=== PATIENT | female | born 1955 | race Caucasian/White ===

== ENCOUNTER 2019-09-05 06:28 | Day surgery (SDC) | payer OTHER ==
[2019-09-05] VITALS (9 sets, daily range): BP systolic 81–120; BP diastolic 39–74
[2019-09-05] MEDS ORDERED: OMEP-50 PO (07:03)
[2019-09-05] MEDS ORDERED: NADO40TA PO (07:03)
[2019-09-05] MEDS ORDERED: METF-438 PO (07:03)
[2019-09-05] MEDS ORDERED: PROC10TA10 PO (07:03)
[2019-09-05] MEDS ORDERED: SEMA0.25 (07:03)
[2019-09-05] MEDS ORDERED: METO5TAB98 PO (07:03)
[2019-09-05] MEDS ORDERED: SPIR50TA5 PO (07:03)
[2019-09-05] MEDS ORDERED: FURO20TA4 PO (07:03)
[2019-09-05 07:14] LABS: BASOPHILS % (AUTO) 0.3 % (0-1); EOSINOPHILS # (AUTO) 0.1 X10'3 (0-0.9); EOSINOPHILS % (AUTO) 2.4 % (0-6); HEMATOCRIT 38.4 % (35.0-45.0); HEMOGLOBIN 12.9 g/dl (12.0-16.0); LYMPHOCYTES # (AUTO) 0.7 X10'3 (1.1-4.8); MEAN CORPUSCULAR HEMOGLOBIN 30.7 PG (27.0-31.0); MEAN CORPUSCULAR HGB CONC 33.6 g/dL (33.0-36.5); MEAN CORPUSCULAR VOLUME 91.6 FL (78-98); MEAN PLATELET VOLUME 7.8 FL (7.4-10.4); MONOCYTES # (AUTO) 0.5 X10'3 (0-0.9); MONOCYTES % (AUTO) 9.9 % (2-12); NEUTROPHILS # (AUTO) 3.3 X10'3 (1.8-7.7); NEUTROPHILS % (AUTO) 71.4 % (42-75); PLATELET COUNT 88 X10'3 (140-440); RED BLOOD COUNT 4.19 X10'6 (4.20-5.60); RED CELL DISTRIBUTION WIDTH 13.9 % (11.5-14.5); WHITE BLOOD COUNT 4.6 X10'3 (4.5-11.0)
[2019-09-05] MEDS ORDERED: HYDROcodone/acetaminophen 5mg/325mg tablet PO PRN (09:05)
== END 2019-09-05 11:00 | disposition home or self-care (01) ==
LOC: SSTAY O 06:28
PROVIDERS: ATTEND Radiology Diagnostic Radiology
DX: K74.60 Unspecified cirrhosis of liver (principal); K73.8 Other chronic hepatitis, not elsewhere classified; K76.0 Fatty (change of) liver, not elsewhere classified; E11.9 Type 2 diabetes mellitus without complications; Z11.59 Encounter for screening for other viral diseases; Z79.84 Long term (current) use of oral hypoglycemic drugs; Z79.899 Other long term (current) drug therapy
CPT/HCPCS: 36415; 47000; 76942; 85025; 85610; U0003

== ENCOUNTER 2021-12-31 15:59 | Inpatient (IN) | payer MEDICARE, MEDICAID ==
[~2021-12-31] VITALS: Ht 160 cm; Wt 77.0 kg
[~2021-12-31 15:59] MED LIST: FURO20TA4 PO; METF-438 PO; METO5TAB98 PO; NADO40TA4 PO; OMEP20CA16 PO; PROC10TA10 PO; SEMA0.25; SPIR50TA5 PO
[2021-12-31] MEDS ORDERED: normal saline 1000ML IV soln IVB ONE ×2 (16:15→18:20)
[2021-12-31] MEDS ORDERED: ondansetron/PF 4mg/2ml inj IV ONE (16:15)
[2021-12-31] MEDS ORDERED: morphine 4 MG/ML inj SYRINge IV PRN (16:15)
[2021-12-31 16:35] LABS: BASOPHILS # (AUTO) 0.1 X10'3 (0-0.2); BASOPHILS % (AUTO) 0.8 % (0-1); EOSINOPHILS % (AUTO) 0 % (0-6); HEMATOCRIT 34.9 % (35.0-45.0); HEMOGLOBIN 11.9 g/dl (12.0-16.0); LYMPHOCYTES # (AUTO) 0.5 X10'3 (1.1-4.8); LYMPHOCYTES % (AUTO) 4.1 % (21-51); MEAN CORPUSCULAR HEMOGLOBIN 30.4 PG (27.0-31.0); MEAN CORPUSCULAR HGB CONC 34.1 g/dL (33.0-36.5); MEAN CORPUSCULAR VOLUME 89.1 FL (78-98); MEAN PLATELET VOLUME 8.7 FL (7.4-10.4); MONOCYTES # (AUTO) 0.4 X10'3 (0-0.9); MONOCYTES % (AUTO) 3.2 % (2-12); NEUTROPHILS # (AUTO) 11.2 X10'3 (1.8-7.7); NEUTROPHILS % (AUTO) 91.9 % (42-75); PLATELET COUNT 156 X10'3 (140-440); RED BLOOD COUNT 3.92 X10'6 (4.20-5.60); RED CELL DISTRIBUTION WIDTH 12.6 % (11.5-14.5); WHITE BLOOD COUNT 12.2 X10'3 (4.5-11.0)
[2021-12-31] MEDS ORDERED: famotidine/PF 10 mg/ml inj IV ONE (16:40)
[2021-12-31] MEDS ORDERED: LORazepam 2 mg/ml vial IV ONE (16:40)
[2021-12-31] MEDS ORDERED: proCHLORperazine 10 MG/2 ml inj IV ONE (16:40)
[2021-12-31] MEDS ORDERED: ketorolac trometh. 30mg/ml inj. IV ONE (16:40)
[2021-12-31] MEDS ORDERED: CefTRIAXone 2gm/D5W 50ml BAG 50 ML IV ONE (16:40)
[2021-12-31 16:41] LABS: ALANINE AMINOTRANSFERASE 25 U/L (12-78); ALBUMIN 4.2 G/DL (3.4-5.0); ALBUMIN/GLOBULIN RATIO 1.1 (1.1-1.5); ALKALINE PHOSPHATASE 83 IU/L (46-116); ANION GAP 21 (8-16); ASPARTATE AMINO TRANSFERASE 28 U/L (10-37); BILIRUBIN,TOTAL 1.3 MG/DL (0.1-1.0); BLOOD UREA NITROGEN 62 MG/DL (7-18); BUN/CREATININE RATIO 28.8 (6.6-38.0); CHLORIDE 95 MMOL/L (99-107); CREATININE 2.15 MG/DL (0.40-0.90); GLUCOSE 323 MG/DL (70-104); LIPASE 476 U/L (73-393); POTASSIUM 5.1 MMOL/L (3.5-5.1); SODIUM 133 MMOL/L (135-145); TOTAL CARBON DIOXIDE 17.3 MMOL/L (24-32); TOTAL PROTEIN 7.9 G/DL (6.4-8.2); eGFR 23 ML/MIN
[2021-12-31 16:42] LABS: ETHANOL < 0.010 GM/DL (0.0-0.010)
[2021-12-31 17:23] LABS: GASTRIC OCCULT BLOOD POSITIVE (Neg)
--- NOTE | 2021-12-31 17:38 | NUR ---
Pt's spouse, Colby Hickman, called to check on pt. His phone number is: [phone].
[2021-12-31] MEDS ORDERED: diphenhydrAMINE 50 mg/ml inj IV PRN (20:25)
[2021-12-31] MEDS: normal saline 1000ml 1,000 ML IV SCH ×2 (20:25→21:26)
[2021-12-31] MEDS ORDERED: magnesium 4gm in 100ml NS 100 ML IV PRN (20:25)
[2021-12-31] MEDS ORDERED: magnesium Cl slow-release 64mg tablet PO PRN (20:25)
[2021-12-31] MEDS ORDERED: mag hydrox/Alum hydrox/simeth 30ml oral suspension PO PRN (20:25)
[2021-12-31] MEDS ORDERED: bisacodyl 10mg suppository rectal RC PRN (20:25)
[2021-12-31] MEDS ORDERED: HYDROmorphone inj. 0.5 MG/0.5 ML DISP.SYRIN IV PRN (20:25)
[2021-12-31] MEDS ORDERED: ondansetron 4mg rapidly disintigrating tab PO PRN (20:25)
[2021-12-31] MEDS ORDERED: potassium Cl 40MEQ/1/2NS 520ml 520 ML IV PRN (20:25)
[2021-12-31] MEDS ORDERED: diphenhydrAMINE 25mg capsule PO PRN (20:25)
[2021-12-31] MEDS ORDERED: acetaminophen 325mg tablet PO PRN ×2 (20:25)
[2021-12-31] MEDS ORDERED: acetaminophen 650mg rectal suppository RC PRN (20:25)
[2021-12-31] MEDS ORDERED: magnesium hydroxide 30ml (MOM) UD suspension PO PRN (20:25)
[2021-12-31] MEDS ORDERED: potassium Cl 20 mEq SR tablet PO PRN ×2 (20:25)
[2021-12-31] MEDS ORDERED: insulin Lispro (HumaLOG) vial - multi-dose SQ SCH (20:30)
[2021-12-31] MEDS ORDERED: MESSAGE TO PHARMACY PO ONE (20:30)
[2021-12-31] MEDS ORDERED: dextrose 50%-water 50ml dispensing syringe IV PRN ×2 (20:30)
[2021-12-31] MEDS ORDERED: glucagon, human recombinant 1mg kit SUBCUT PRN (20:30)
[2021-12-31] MEDS ORDERED: DEXTROSE 15 GM of carb/4 tabs (each vial/BOTTLE has 4 tablets) PO PRN ×2 (20:30)
[2021-12-31] MEDS ORDERED: temazepam 15mg capsule PO PRN (21:00)
[2021-12-31 21:13] LABS: APTT 31 SECONDS (22-32)
[2021-12-31 21:24] LABS: CREATINE KINASE 91 U/L (26-192); HEMOGLOBIN A1C 5.8 % (4.5-6.2); LIPASE 380 U/L (73-393); PHOSPHORUS 3.6 MG/DL (2.3-4.5)
[2021-12-31 21:25] LABS: ABG BASE EXCESS -5.2 mmol/L (-2.0-2.0); ABG HCO3 19.2 mmol/L (22.0-26.0); ABG OXYGEN SATURATION 93.6 % (94-97); ABG PCO2 (T) 33.3 mmHg (32.0-45.0); ABG PO2 (T) 76.4 mmHg (75.0-100.0); ALLEN'S TEST POSITIVE; FCOHb 0.3 % (0.0-3.9); FMetHb 0.3 % (0.0-1.5); TOTAL HEMOGLOBIN 10.2 G/dl (12.0-16.0)
[2022-01-01] VITALS (12 sets, daily range): BP systolic 88–112; BP diastolic 43–61
--- NOTE | 2022-01-01 00:15 | NUR ---
Spoke with Dr Aviles at patient's bedside regarding patient's worsening hypotension. 500mL bolus order recieved from MD. Patient denies symptoms of hypotension at this time.
--- NOTE | 2022-01-01 00:30 | NUR ---
Assumed care of patient.
[2022-01-01] MEDS ORDERED: normal saline 500ml IV soln 500 ML IV ONE (01:15)
[2022-01-01] MEDS ORDERED: LIDOcaine 2% 10ml TOPICAL JELLY (Urojet) TP ONE (01:55)
[2022-01-01 03:02] LABS: CLARITY,URINE SLIGHTLY CLOUDY (Clear); COLOR,URINE YELLOW (Yellow); GLUCOSE, URINE NEGATIVE (Neg); KETONES,URINE TRACE mg/dl (Neg); LEUKOCYTE ESTERASE ,URINE NEGATIVE (Neg); NITRITES, URINE POSITIVE (Neg); OCCULT BLOOD,URINE NEGATIVE (Neg); PH,URINE 5.5 (4.8-8.0); PROTEIN,URINE NEGATIVE (Neg); UROBILINOGEN,URINE 0.2 E.U/dL (0.2-1.0)
[2022-01-01 03:14] LABS: URINE AMPHETAMINE SCREEN NEGATIVE (Neg); URINE BARBITUATE SCREEN NEGATIVE (Neg); URINE BENZODIAZEPINES SCREEN NEGATIVE (Neg); URINE CANNABINOID SCREEN NEGATIVE (Neg); URINE COCAINE SCREEN NEGATIVE (Neg); URINE METHADONE SCREEN NEGATIVE (Neg); URINE OPIATE SCREEN POSITIVE (Neg); URINE PHENCYCLIDINE SCREEN NEGATIVE (Neg)
[2022-01-01 03:15] LABS: UA COLLECTION TYPE FOLEY CATH
[2022-01-01 03:16] LABS: SQUAMOUS EPITHELIAL CELL,UR MODERATE /LPF (FEW)
[2022-01-01 03:17] LABS: BACTERIA,URINE 4+ /HPF (Neg); RBC,URINE 0-2 /HPF (0-2); TRANSITIONAL EPI CELLS,URINE FEW /HPF
[2022-01-01 03:18] LABS: WBC,URINE 0-4 /HPF (0-4)
--- NOTE | 2022-01-01 03:40 | NUR ---
Call to Dr. Aviles regarding patient inability to maintain adequate blood pressure. Recommended consult with Heading Matcher And Assembler, did not agree.
[2022-01-01] MEDS ORDERED: DOPamine 400mg/D5W 250ml 250 ML IV SCH (03:45)
[2022-01-01] MEDS: DOPamine 400mg/D5W 250ml 250 ML IV SCH ×2 (04:43→20:17)
[2022-01-01] MEDS: normal saline 1000ml 1,000 ML IV SCH ×4 (04:55→20:35)
--- NOTE | 2022-01-01 06:56 | NUR ---
Report given to NICKOLAS Bernal in CICU.
[2022-01-01] MEDS: pantoprazole 40MG/NS 100ML BAG 100 ML IV SCH ×2 (08:00→20:31)
[2022-01-01] MEDS: K and/or MAG REPLACEMENT MC SCH ×2 (08:00→20:00)
[2022-01-01] MEDS: docusate sod 100mg capsule PO SCH ×2 (08:00→20:00)
--- NOTE | 2022-01-01 08:30 | NUR ---
Patient arrived to floor and placed on bedside telemetry. Stable vital signs on Dopamine. Patient oriented to room with all questions answered and call light in reach.
[2022-01-01 09:59] LABS: BASOPHILS % (AUTO) 0.3 % (0-1); EOSINOPHILS % (AUTO) 0.2 % (0-6); HEMATOCRIT 27.3 % (35.0-45.0); HEMOGLOBIN 9.5 g/dl (12.0-16.0); LYMPHOCYTES # (AUTO) 0.4 X10'3 (1.1-4.8); LYMPHOCYTES % (AUTO) 4.3 % (21-51); MEAN CORPUSCULAR HEMOGLOBIN 31.4 PG (27.0-31.0); MEAN CORPUSCULAR HGB CONC 34.8 g/dL (33.0-36.5); MEAN CORPUSCULAR VOLUME 90.4 FL (78-98); MEAN PLATELET VOLUME 7.9 FL (7.4-10.4); MONOCYTES # (AUTO) 0.5 X10'3 (0-0.9); MONOCYTES % (AUTO) 4.8 % (2-12); NEUTROPHILS # (AUTO) 8.9 X10'3 (1.8-7.7); NEUTROPHILS % (AUTO) 90.4 % (42-75); PLATELET COUNT 80 X10'3 (140-440); RED BLOOD COUNT 3.02 X10'6 (4.20-5.60); RED CELL DISTRIBUTION WIDTH 12.9 % (11.5-14.5); WHITE BLOOD COUNT 9.9 X10'3 (4.5-11.0)
[2022-01-01 10:09] LABS: ALANINE AMINOTRANSFERASE 17 U/L (12-78); ALKALINE PHOSPHATASE 62 IU/L (46-116); ANION GAP 10 (8-16); ASPARTATE AMINO TRANSFERASE 28 U/L (10-37); BILIRUBIN,TOTAL 0.5 MG/DL (0.1-1.0); BLOOD UREA NITROGEN 55 MG/DL (7-18); BUN/CREATININE RATIO 29.6 (6.6-38.0); CALCIUM 8.1 MG/DL (8.5-10.1); CHLORIDE 111 MMOL/L (99-107); CREATININE 1.86 MG/DL (0.40-0.90); GLUCOSE 123 MG/DL (70-104); MAGNESIUM 2.1 MG/DL (1.5-2.4); POTASSIUM 4.6 MMOL/L (3.5-5.1); SODIUM 145 MMOL/L (135-145); TOTAL CARBON DIOXIDE 23.9 MMOL/L (24-32); eGFR 27 ML/MIN
[2022-01-01] MEDS: morphine 2 MG/ML inj. syringe IV PRN ×2 (10:24→16:21)
[2022-01-01 10:33] LABS: LIPASE 2579 U/L (73-393)
[2022-01-01] MEDS: piperacillin/tazo 4.5gm/100ml 100 ML IV SCH (15:30)
--- NOTE | 2022-01-01 16:42 | NUR ---
Patient in room CICU 2013. I have received report from ICU nurse and had the opportunity to ask questions and assume patient care. Addendum: 01/01/22 at 1642 by Linda Damian RN Patient in room CICU 2013. I have received report from ICU nurse rom and had the opportunity to ask questions and assume patient care.
--- NOTE | 2022-01-01 17:10 | NUR ---
Patient transferred to Telemetry with all belongings, chart, and hospital medications. Report given to Bran with all questions answered.
[2022-01-01] MEDS ORDERED: SITA25TA3 PO (17:13)
[2022-01-01] MEDS ORDERED: URSO300C2 PO (17:14)
[2022-01-01] MEDS ORDERED: DULA1.5P SQ (17:15)
[2022-01-01] MEDS ORDERED: FURO40TA4 PO (17:16)
[2022-01-01] MEDS ORDERED: ONDA4TAB12 PO (17:17)
[2022-01-01] MEDS ORDERED: LISI10TA27 PO (17:18)
--- NOTE | 2022-01-01 17:30 | NUR ---
PT CAME UP TO THE FLOOR AND WAS DROPPED OFF BY THE ICU NURSE. VITALS WERE TAKEN AND PT WAS TUCKED INTO BED AND GOT HER WATER. WILL LET NIGHT NURSE KNOW SHE IS STABLE.
--- NOTE | 2022-01-01 18:53 | NUR ---
Problems reprioritized. Patient report given, questions answered & plan of care reviewed with TIM OLMOS.
[2022-01-01] MEDS ORDERED: traMADol 50MG tablet PO PRN (20:20)
[2022-01-01] MEDS: HYDROcodone/acetaminophen 5mg/325mg tablet PO PRN (20:31)
[2022-01-01] MEDS: CefTRIAXone/D5W-Rocephin 1gm 50 ML IV SCH (20:35)
[2022-01-02] MEDS: piperacillin/tazo 4.5gm/100ml 100 ML IV SCH ×3 (00:59→16:04)
[2022-01-02 05:54] VITALS: BP 114/69
[2022-01-02 05:54] LABS: BASOPHILS % (AUTO) 0.3 % (0-1); EOSINOPHILS # (AUTO) 0.1 X10'3 (0-0.9); EOSINOPHILS % (AUTO) 1.8 % (0-6); HEMATOCRIT 25.7 % (35.0-45.0); HEMOGLOBIN 8.8 g/dl (12.0-16.0); LYMPHOCYTES # (AUTO) 0.6 X10'3 (1.1-4.8); LYMPHOCYTES % (AUTO) 12.1 % (21-51); MEAN CORPUSCULAR HEMOGLOBIN 31.1 PG (27.0-31.0); MEAN CORPUSCULAR HGB CONC 34.3 g/dL (33.0-36.5); MEAN CORPUSCULAR VOLUME 90.8 FL (78-98); MEAN PLATELET VOLUME 7.9 FL (7.4-10.4); MONOCYTES # (AUTO) 0.4 X10'3 (0-0.9); MONOCYTES % (AUTO) 7.7 % (2-12); NEUTROPHILS # (AUTO) 3.6 X10'3 (1.8-7.7); NEUTROPHILS % (AUTO) 78.1 % (42-75); PLATELET COUNT 70 X10'3 (140-440); RED BLOOD COUNT 2.83 X10'6 (4.20-5.60); RED CELL DISTRIBUTION WIDTH 13.1 % (11.5-14.5); WHITE BLOOD COUNT 4.6 X10'3 (4.5-11.0)
[2022-01-02 06:00] VITALS: BP 108/59
[2022-01-02 06:12] LABS: ALANINE AMINOTRANSFERASE 19 U/L (12-78); ALBUMIN 2.5 G/DL (3.4-5.0); ALBUMIN/GLOBULIN RATIO 0.9 (1.1-1.5); ALKALINE PHOSPHATASE 58 IU/L (46-116); ANION GAP 8 (8-16); ASPARTATE AMINO TRANSFERASE 29 U/L (10-37); BILIRUBIN,TOTAL 0.5 MG/DL (0.1-1.0); BLOOD UREA NITROGEN 32 MG/DL (7-18); BUN/CREATININE RATIO 23.2 (6.6-38.0); CALCIUM 7.9 MG/DL (8.5-10.1); CHLORIDE 110 MMOL/L (99-107); CREATININE 1.38 MG/DL (0.40-0.90); GLUCOSE 109 MG/DL (70-104); POTASSIUM 4.6 MMOL/L (3.5-5.1); SODIUM 142 MMOL/L (135-145); TOTAL CARBON DIOXIDE 24.3 MMOL/L (24-32); TOTAL PROTEIN 5.4 G/DL (6.4-8.2); eGFR 38 ML/MIN
[2022-01-02] MEDS ORDERED: INDOCYANINE GREEN 25 MG/10 ML VIAL IV ONE (06:15)
--- NOTE | 2022-01-02 06:39 | NUR ---
Patient in room PCU 3027. I have received report from NICKOLAS Arvizu and had the opportunity to ask questions and assume patient care.
[2022-01-02] MEDS: normal saline 1000ml 1,000 ML IV SCH (07:35)
[2022-01-02] MEDS: K and/or MAG REPLACEMENT MC SCH ×2 (08:00→19:23)
[2022-01-02] MEDS: docusate sod 100mg capsule PO SCH ×2 (08:00→20:32)
[2022-01-02 08:08] LABS: LIPASE 3348 U/L (73-393)
[2022-01-02] MEDS ORDERED: INDOCYANINE GREEN 25 MG/10 ML VIAL IV STA (09:11)
[2022-01-02 11:00] VITALS: BP 115/62
[2022-01-02] MEDS: HYDROcodone/acetaminophen 10/325mg tab PO PRN ×2 (11:02→20:39)
[2022-01-02] MEDS ORDERED: BUPIVAcaine/PF 2.5 mg/ml (0.25%) 30ml vial ONE (12:17)
[2022-01-02] MEDS ORDERED: LIDOcaine 1% 30ml preserv. free vial ONE (12:17)
[2022-01-02 15:00] VITALS: BP 105/59
[2022-01-02 18:00] VITALS: BP 135/73
--- NOTE | 2022-01-02 18:34 | NUR ---
Problems reprioritized. Patient report given, questions answered & plan of care reviewed with NICKOLAS Dodson.
[2022-01-02] MEDS: Ursodiol 300mg capsule PO SCH (20:31)
[2022-01-02] MEDS: CefTRIAXone/D5W-Rocephin 1gm 50 ML IV SCH (20:31)
[2022-01-02] MEDS: furosemide 40mg tablet PO SCH (20:32)
[2022-01-02] MEDS: spironolactone 50 MG tablet PO SCH (20:32)
[2022-01-03] MEDS: piperacillin/tazo 4.5gm/100ml 100 ML IV SCH ×3 (00:41→15:52)
[2022-01-03 02:00] VITALS: BP 108/63
[2022-01-03 06:00] VITALS: BP 109/65
[2022-01-03 06:50] LABS: BASOPHILS % (AUTO) 0.4 % (0-1); EOSINOPHILS # (AUTO) 0.1 X10'3 (0-0.9); EOSINOPHILS % (AUTO) 3.5 % (0-6); HEMATOCRIT 29.4 % (35.0-45.0); HEMOGLOBIN 10.3 g/dl (12.0-16.0); LYMPHOCYTES # (AUTO) 0.7 X10'3 (1.1-4.8); LYMPHOCYTES % (AUTO) 17.6 % (21-51); MEAN CORPUSCULAR HEMOGLOBIN 31.4 PG (27.0-31.0); MEAN CORPUSCULAR HGB CONC 35.1 g/dL (33.0-36.5); MEAN CORPUSCULAR VOLUME 89.3 FL (78-98); MONOCYTES # (AUTO) 0.3 X10'3 (0-0.9); MONOCYTES % (AUTO) 8.2 % (2-12); NEUTROPHILS # (AUTO) 2.8 X10'3 (1.8-7.7); NEUTROPHILS % (AUTO) 70.3 % (42-75); PLATELET COUNT 86 X10'3 (140-440); RED BLOOD COUNT 3.29 X10'6 (4.20-5.60); RED CELL DISTRIBUTION WIDTH 12.6 % (11.5-14.5)
--- NOTE | 2022-01-03 06:52 | NUR ---
Patient in room PCU 3027. I have received report from NICKOLAS Dodson and had the opportunity to ask questions and assume patient care.
[2022-01-03 07:04] LABS: ALANINE AMINOTRANSFERASE 20 U/L (12-78); ALBUMIN 3.1 G/DL (3.4-5.0); ALBUMIN/GLOBULIN RATIO 0.9 (1.1-1.5); ALKALINE PHOSPHATASE 77 IU/L (46-116); ANION GAP 6 (8-16); ASPARTATE AMINO TRANSFERASE 45 U/L (10-37); BILIRUBIN,TOTAL 0.8 MG/DL (0.1-1.0); BLOOD UREA NITROGEN 20 MG/DL (7-18); BUN/CREATININE RATIO 14.5 (6.6-38.0); CALCIUM 8.7 MG/DL (8.5-10.1); CHLORIDE 103 MMOL/L (99-107); CREATININE 1.38 MG/DL (0.40-0.90); GLUCOSE 95 MG/DL (70-104); LIPASE 1164 U/L (73-393); SODIUM 137 MMOL/L (135-145); TOTAL CARBON DIOXIDE 28.5 MMOL/L (24-32); TOTAL PROTEIN 6.5 G/DL (6.4-8.2); eGFR 38 ML/MIN
[2022-01-03 07:09] LABS: POTASSIUM 4.1 MMOL/L (3.5-5.1)
[2022-01-03] MEDS: pantoprazole 40MG/NS 100ML BAG 100 ML IV SCH (07:32)
[2022-01-03] MEDS: spironolactone 50 MG tablet PO SCH ×3 (07:38→21:31)
[2022-01-03] MEDS: lisinopril 10 MG tablet PO SCH (07:38)
[2022-01-03] MEDS: docusate sod 100mg capsule PO SCH ×2 (07:39→21:31)
[2022-01-03] MEDS: K and/or MAG REPLACEMENT MC SCH ×2 (07:39→20:00)
[2022-01-03] MEDS: furosemide 40mg tablet PO SCH ×2 (07:39→21:32)
[2022-01-03] MEDS: Ursodiol 300mg capsule PO SCH ×2 (07:51→21:31)
[2022-01-03 11:00] VITALS: BP 119/67
[2022-01-03] MEDS: normal saline 1000ml 1,000 ML IV SCH ×2 (11:34→14:07)
[2022-01-03 11:50] VITALS: BP 119/67
--- NOTE | 2022-01-03 19:05 | NUR ---
Problems reprioritized. Patient report given, questions answered & plan of care reviewed with NICKOLAS Dodson.
[2022-01-03] MEDS: CefTRIAXone/D5W-Rocephin 1gm 50 ML IV SCH (21:31)
[2022-01-04] MEDS: piperacillin/tazo 4.5gm/100ml 100 ML IV SCH ×3 (00:21→16:09)
[2022-01-04] MEDS: normal saline 1000ml 1,000 ML IV SCH (04:14)
[2022-01-04] MEDS: ondansetron/PF 4mg/2ml inj IV PRN (04:51)
[2022-01-04 06:00] VITALS: BP 95/63
[2022-01-04 06:23] LABS: BASOPHILS % (AUTO) 0.4 % (0-1); EOSINOPHILS # (AUTO) 0.1 X10'3 (0-0.9); EOSINOPHILS % (AUTO) 2.5 % (0-6); HEMATOCRIT 31.9 % (35.0-45.0); HEMOGLOBIN 11.2 g/dl (12.0-16.0); LYMPHOCYTES # (AUTO) 0.7 X10'3 (1.1-4.8); LYMPHOCYTES % (AUTO) 14.5 % (21-51); MEAN CORPUSCULAR HEMOGLOBIN 31.3 PG (27.0-31.0); MEAN CORPUSCULAR HGB CONC 35.2 g/dL (33.0-36.5); MEAN CORPUSCULAR VOLUME 88.8 FL (78-98); MEAN PLATELET VOLUME 8.1 FL (7.4-10.4); MONOCYTES # (AUTO) 0.5 X10'3 (0-0.9); MONOCYTES % (AUTO) 9.3 % (2-12); NEUTROPHILS # (AUTO) 3.6 X10'3 (1.8-7.7); NEUTROPHILS % (AUTO) 73.3 % (42-75); PLATELET COUNT 104 X10'3 (140-440); RED BLOOD COUNT 3.59 X10'6 (4.20-5.60); RED CELL DISTRIBUTION WIDTH 12.8 % (11.5-14.5)
--- NOTE | 2022-01-04 06:40 | NUR ---
Patient in room PCU 3027. I have received report from NICKOLAS Dodson and had the opportunity to ask questions and assume patient care.
[2022-01-04 06:45] LABS: ALANINE AMINOTRANSFERASE 23 U/L (12-78); ALBUMIN 3.5 G/DL (3.4-5.0); ALBUMIN/GLOBULIN RATIO 0.9 (1.1-1.5); ALKALINE PHOSPHATASE 84 IU/L (46-116); ANION GAP 10 (8-16); ASPARTATE AMINO TRANSFERASE 36 U/L (10-37); BILIRUBIN,TOTAL 0.9 MG/DL (0.1-1.0); BLOOD UREA NITROGEN 18 MG/DL (7-18); BUN/CREATININE RATIO 11.4 (6.6-38.0); CALCIUM 9.1 MG/DL (8.5-10.1); CHLORIDE 99 MMOL/L (99-107); CREATININE 1.58 MG/DL (0.40-0.90); GLUCOSE 89 MG/DL (70-104); MAGNESIUM 1.6 MG/DL (1.5-2.4); POTASSIUM 3.4 MMOL/L (3.5-5.1); SODIUM 139 MMOL/L (135-145); TOTAL CARBON DIOXIDE 30.3 MMOL/L (24-32); TOTAL PROTEIN 7.4 G/DL (6.4-8.2); eGFR 33 ML/MIN
[2022-01-04] MEDS: Ursodiol 300mg capsule PO SCH ×2 (07:11→20:00)
[2022-01-04] MEDS: pantoprazole 40MG/NS 100ML BAG 100 ML IV SCH (07:11)
[2022-01-04] MEDS: docusate sod 100mg capsule PO SCH ×2 (07:12→20:00)
[2022-01-04] MEDS: lisinopril 10 MG tablet PO SCH (07:12)
[2022-01-04] MEDS: furosemide 40mg tablet PO SCH ×2 (07:13→20:00)
[2022-01-04] MEDS: spironolactone 50 MG tablet PO SCH ×3 (07:13→21:00)
--- NOTE | 2022-01-04 09:54 | NUR ---
Initial: Pt admit DX pancreatitis related to cholelithiasis, KATIE, normocytic anemia, and hx cirrhosis w/ end stage liver disease per EMR. Pt Initially w/ nausea/dry heaving and abdominal pain though feeling better last night per MD note. Lipase 1164 yesterday down from prior 3348 on NPO vs clear liquids diet past 5 days. Pt PO 75-100% 3 documented meal intakes this admit not meeting needs w/ restrictive diet. RD d/w RN regarding diet advancement if MD agreeable. IF pt to remain on restrictive diet may benefit from post-pyloric supplemental EN to assist meeting needs. LBM 01/01 pt refusing colace this AM per EMR. Will monitor for further nutrition intervention needs this admit. Rec: 1. advance diet as medically indicated to regular 2. IF to remain on restrictive clears vs NPO; consider supplemental post-pyloric EN to meet nutrition needs 3. routine bowel care 4. scaled wt this admit; subsequent weekly wts Addendum: 01/04/22 at [address] Amended: Links added.
[2022-01-04] MEDS: HYDROcodone/acetaminophen 10/325mg tab PO PRN ×2 (10:42→17:13)
[2022-01-04] MEDS ORDERED: potassium Cl 20 mEq SR tablet PO PRN (10:50)
[2022-01-04] MEDS ORDERED: potassium Cl 40MEQ/1/2NS 520ml 520 ML IV PRN ×2 (10:50)
[2022-01-04 11:00] VITALS: BP 91/64
[2022-01-04] MEDS ORDERED: HYDR-3965 PO (12:09)
[2022-01-04] MEDS ORDERED: AMOX-580 PO (12:09)
[2022-01-04] MEDS: potassium Cl 20 mEq SR tablet PO PRN ×2 (13:29→17:42)
[2022-01-04 17:00] VITALS: BP 119/64
--- NOTE | 2022-01-04 18:49 | NUR ---
Problems reprioritized. Patient report given, questions answered & plan of care reviewed with NICKOLAS Dodson.
[2022-01-04] MEDS: K and/or MAG REPLACEMENT MC SCH (20:00)
[2022-01-05] MEDS: HYDROcodone/acetaminophen 10/325mg tab PO PRN (03:15)
[2022-01-05 06:00] VITALS: BP 99/58
[2022-01-05 06:43] LABS: BASOPHILS % (AUTO) 0.5 % (0-1); EOSINOPHILS # (AUTO) 0.1 X10'3 (0-0.9); HEMATOCRIT 32.8 % (35.0-45.0); HEMOGLOBIN 11.6 g/dl (12.0-16.0); LYMPHOCYTES # (AUTO) 0.7 X10'3 (1.1-4.8); MEAN CORPUSCULAR HEMOGLOBIN 31.3 PG (27.0-31.0); MEAN CORPUSCULAR HGB CONC 35.3 g/dL (33.0-36.5); MEAN CORPUSCULAR VOLUME 88.7 FL (78-98); MEAN PLATELET VOLUME 8.2 FL (7.4-10.4); MONOCYTES # (AUTO) 0.5 X10'3 (0-0.9); MONOCYTES % (AUTO) 11.1 % (2-12); NEUTROPHILS # (AUTO) 3.1 X10'3 (1.8-7.7); NEUTROPHILS % (AUTO) 69.4 % (42-75); PLATELET COUNT 98 X10'3 (140-440); RED BLOOD COUNT 3.69 X10'6 (4.20-5.60); RED CELL DISTRIBUTION WIDTH 12.8 % (11.5-14.5); WHITE BLOOD COUNT 4.4 X10'3 (4.5-11.0)
[2022-01-05 06:52] LABS: ALANINE AMINOTRANSFERASE 18 U/L (12-78); ALBUMIN 3.5 G/DL (3.4-5.0); ALBUMIN/GLOBULIN RATIO 0.9 (1.1-1.5); ALKALINE PHOSPHATASE 89 IU/L (46-116); ANION GAP 8 (8-16); ASPARTATE AMINO TRANSFERASE 32 U/L (10-37); BILIRUBIN,TOTAL 0.8 MG/DL (0.1-1.0); BLOOD UREA NITROGEN 20 MG/DL (7-18); BUN/CREATININE RATIO 11.8 (6.6-38.0); CALCIUM 9.3 MG/DL (8.5-10.1); CHLORIDE 98 MMOL/L (99-107); GLUCOSE 94 MG/DL (70-104); POTASSIUM 3.8 MMOL/L (3.5-5.1); SODIUM 135 MMOL/L (135-145); TOTAL CARBON DIOXIDE 29.1 MMOL/L (24-32); TOTAL PROTEIN 7.3 G/DL (6.4-8.2); eGFR 30 ML/MIN
[2022-01-05] MEDS: Ursodiol 300mg capsule PO SCH ×2 (07:17→20:01)
[2022-01-05] MEDS: pantoprazole 40MG/NS 100ML BAG 100 ML IV SCH (07:17)
[2022-01-05] MEDS: furosemide 40mg tablet PO SCH ×2 (07:26→20:02)
[2022-01-05] MEDS: spironolactone 50 MG tablet PO SCH ×3 (07:26→20:01)
[2022-01-05] MEDS: lisinopril 10 MG tablet PO SCH (07:26)
[2022-01-05] MEDS: docusate sod 100mg capsule PO SCH ×2 (07:27→20:00)
[2022-01-05] MEDS: K and/or MAG REPLACEMENT MC SCH ×2 (08:00→20:00)
[2022-01-05 10:00] VITALS: BP 103/67
[2022-01-05] MEDS: piperacillin/tazo 4.5gm/100ml 100 ML IV SCH ×4 (10:02→23:48)
--- NOTE | 2022-01-05 14:15 | NUR ---
pt in shower will give med when done
[2022-01-05 15:00] VITALS: BP 111/68
[2022-01-05 18:00] VITALS: BP 112/66
[2022-01-05 20:00] VITALS: BP 117/79
[2022-01-05] MEDS: HYDROcodone/acetaminophen 5mg/325mg tablet PO PRN (20:02)
[2022-01-05 22:00] VITALS: BP 108/56
[2022-01-06 02:00] VITALS: BP_SYST 157; BP_SYST 97; BP_DIAS 55; BP_DIAS 95
[2022-01-06 06:00] VITALS: BP 93/62
--- NOTE | 2022-01-06 06:42 | NUR ---
Problems reprioritized. Patient report given, questions answered & plan of care reviewed with RAYSHAWN OLMOS.
[2022-01-06] MEDS: docusate sod 100mg capsule PO SCH ×2 (08:00→20:00)
[2022-01-06] MEDS: K and/or MAG REPLACEMENT MC SCH ×2 (08:00→20:00)
[2022-01-06] MEDS: Ursodiol 300mg capsule PO SCH ×2 (09:24→20:01)
[2022-01-06] MEDS: lisinopril 10 MG tablet PO SCH (09:25)
[2022-01-06] MEDS: spironolactone 50 MG tablet PO SCH ×3 (09:25→21:07)
[2022-01-06] MEDS: furosemide 40mg tablet PO SCH ×2 (09:25→20:01)
[2022-01-06] MEDS: piperacillin/tazo 4.5gm/100ml 100 ML IV SCH (09:34)
[2022-01-06] MEDS: pantoprazole 40MG/NS 100ML BAG 100 ML IV SCH (09:44)
[2022-01-06] MEDS: piperacillin/tazo 3.375gm/50ml 50 ML IV SCH (16:06)
[2022-01-06 16:15] VITALS: BP 117/40
[2022-01-06 18:00] VITALS: BP 114/65
--- NOTE | 2022-01-06 18:12 | NUR ---
Problems reprioritized. Patient report given, questions answered & plan of care reviewed with Mary Lou OLMOS.
--- NOTE | 2022-01-06 18:20 | NUR ---
Patient in room U 3027. I have received report from NICKOLAS Burrell and had the opportunity to ask questions and assume patient care. Patient sitting up in bed talking on phone, I will continue to monitor.
[2022-01-06 22:00] VITALS: BP 80/46
[2022-01-07] VITALS (23 sets, daily range): BP systolic 95–136; BP diastolic 49–70
[2022-01-07] MEDS: piperacillin/tazo 3.375gm/50ml 50 ML IV SCH ×3 (00:08→19:37)
[2022-01-07 05:55] LABS: BASOPHILS % (AUTO) 0.6 % (0-1); EOSINOPHILS # (AUTO) 0.2 X10'3 (0-0.9); EOSINOPHILS % (AUTO) 3.3 % (0-6); HEMATOCRIT 32.8 % (35.0-45.0); HEMOGLOBIN 11.3 g/dl (12.0-16.0); LYMPHOCYTES # (AUTO) 0.8 X10'3 (1.1-4.8); LYMPHOCYTES % (AUTO) 15.3 % (21-51); MEAN CORPUSCULAR HEMOGLOBIN 30.7 PG (27.0-31.0); MEAN CORPUSCULAR HGB CONC 34.5 g/dL (33.0-36.5); MEAN CORPUSCULAR VOLUME 89.2 FL (78-98); MONOCYTES # (AUTO) 0.6 X10'3 (0-0.9); NEUTROPHILS # (AUTO) 3.5 X10'3 (1.8-7.7); NEUTROPHILS % (AUTO) 68.8 % (42-75); PLATELET COUNT 109 X10'3 (140-440); RED BLOOD COUNT 3.67 X10'6 (4.20-5.60); RED CELL DISTRIBUTION WIDTH 12.8 % (11.5-14.5); WHITE BLOOD COUNT 5.1 X10'3 (4.5-11.0)
[2022-01-07 06:09] LABS: ALANINE AMINOTRANSFERASE 19 U/L (12-78); ALBUMIN 3.4 G/DL (3.4-5.0); ALBUMIN/GLOBULIN RATIO 0.9 (1.1-1.5); ALKALINE PHOSPHATASE 82 IU/L (46-116); ANION GAP 5 (8-16); ASPARTATE AMINO TRANSFERASE 30 U/L (10-37); BILIRUBIN,TOTAL 0.8 MG/DL (0.1-1.0); BLOOD UREA NITROGEN 22 MG/DL (7-18); BUN/CREATININE RATIO 9.1 (6.6-38.0); CALCIUM 9.1 MG/DL (8.5-10.1); CHLORIDE 98 MMOL/L (99-107); CREATININE 2.41 MG/DL (0.40-0.90); GLUCOSE 102 MG/DL (70-104); POTASSIUM 3.4 MMOL/L (3.5-5.1); SODIUM 137 MMOL/L (135-145); TOTAL CARBON DIOXIDE 33.8 MMOL/L (24-32); eGFR 20 ML/MIN
--- NOTE | 2022-01-07 06:20 | NUR ---
Problems reprioritized. Patient report given, questions answered & plan of care reviewed with NICKOLAS Geiger.
[2022-01-07] MEDS ORDERED: LIDOcaine 1% 30ml preserv. free vial ONE (07:05)
[2022-01-07] MEDS ORDERED: BUPIVAcaine 0.5% inj/PF 30 ML ONE (07:05)
[2022-01-07] MEDS: pantoprazole 40MG/NS 100ML BAG 100 ML IV SCH (07:12)
[2022-01-07] MEDS: Ursodiol 300mg capsule PO SCH ×2 (07:18→20:00)
[2022-01-07] MEDS: lisinopril 10 MG tablet PO SCH (07:20)
[2022-01-07] MEDS: furosemide 40mg tablet PO SCH (07:20)
[2022-01-07] MEDS: docusate sod 100mg capsule PO SCH ×2 (07:21→20:00)
[2022-01-07] MEDS: spironolactone 50 MG tablet PO SCH ×3 (07:21→21:00)
[2022-01-07] MEDS: K and/or MAG REPLACEMENT MC SCH ×2 (07:25→20:00)
[2022-01-07] MEDS: potassium Cl 20 mEq SR tablet PO PRN (07:25)
--- NOTE | 2022-01-07 08:14 | NUR ---
Reassessment; Pt has been advanced to Full liquid diet and has had mostly 100% of meals, not meeting est protein needs. While this full liquid diet technically does meet her est energy needs, it will be insufficient on micronutrients. Pt may be getting laparoscopic cholecystectomy this admit per EMR. Recommend advancing to Regular diet. LB 01/06, will continue to monitor. Rec: 1. advance diet as medically indicated to regular 2. IF to remain on restrictive clears vs NPO; consider supplemental post-pyloric EN to meet nutrition needs 3. routine bowel care 4. scaled wt this admit; subsequent weekly wts Addendum: 01/07/22 at [address] Amended: Links added.
[2022-01-07] MEDS ORDERED: INDOCYANINE GREEN 25 MG/10 ML VIAL IV STA (12:12)
[2022-01-07] MEDS ORDERED: morphine 2 MG/ML inj. syringe IV PRN (13:40)
[2022-01-07] MEDS ORDERED: ringers solution, lacted 1,000 ML IV SCH (13:40)
[2022-01-07] MEDS ORDERED: ondansetron/PF 4mg/2ml inj IV PRN (13:40)
[2022-01-07] MEDS ORDERED: meperidine/PF 25mg/ml syringe IV PRN ×3 (13:40)
[2022-01-07] MEDS ORDERED: morphine 4 MG/ML inj SYRINge IV PRN (13:40)
[2022-01-07] MEDS ORDERED: fentaNYL/PF 50MCG/1 ML 2ML syringe ONE (13:53)
[2022-01-07] MEDS ORDERED: midazolam 1 mg/ML 2ml injection ONE (13:53)
[2022-01-07] MEDS ORDERED: propofol inj 20 ML IV ONE (13:55)
[2022-01-07] MEDS ORDERED: rocuronium 10mg/ml inj IV ONE (14:04)
[2022-01-07] MEDS ORDERED: ondansetron/PF 4mg/2ml inj ONE (14:14)
[2022-01-07] MEDS ORDERED: BUPIVAcaine 0.5% inj/PF 30 ml vial IJ ONE (14:44)
[2022-01-07] MEDS ORDERED: albumin (human) 25% 100ml IV 100 ML IV ONE (15:28)
--- NOTE | 2022-01-07 16:06 | NUR ---
Received from OR via BED, accompanied by Anesthesiologist DR ECHOLS and report given by Anesthesiologist AND QUALITY CONTROL. PT DROWSY, DENIES PAIN, ABDOMEN W 3/LAP SITES W/BANDAIDS CDI, COLEMAN CATHETER TO GRAVITY DRAINAGE W/YELLOW URINE IN DRAINAGE BAG. Addendum: 01/07/22 at 1634 by Shannan Gomes RN Amended: Links added.
[2022-01-07] MEDS ORDERED: HYDROcodone/acetaminophen 5mg/325mg tablet PO PRN (16:15)
[2022-01-07] MEDS ORDERED: naloxone 0.4 mg/ml inj IV PRN (16:15)
[2022-01-07] MEDS: proCHLORperazine 10 MG/2 ml inj IV PRN ×3 (16:24→18:32)
[2022-01-07] MEDS: normal saline 1000ml 1,000 ML IV SCH (16:35)
--- NOTE | 2022-01-07 17:36 | NUR ---
Report called to receiving nurse. Transferred via BED BY RN'S, NO Belongings, UPPER DENTURES ON PTS IV POLE ON BED, LOWER DENTURES IN PTS MOUTH. BLL, CALL LIGHT GIVEN, SIDE RAILS UP X 2, PT ATTACHED TO VS MACHINE, RECEIVING RN NOTIFIED OF PTS ARRIVAL. Special Issues communicated to receiving nurse. YES. Addendum: 01/07/22 at 1800 by Shannan Gomes RN Amended: Links added.
[2022-01-07] MEDS: ondansetron/PF 4mg/2ml inj IV PRN (21:59)
[2022-01-08] VITALS (7 sets, daily range): BP systolic 110–138; BP diastolic 53–75
[2022-01-08] MEDS: normal saline 1000ml 1,000 ML IV SCH ×3 (02:35→22:35)
--- NOTE | 2022-01-08 06:30 | NUR ---
Patient in room PCU 3027. I have received report from Polly OLMOS and had the opportunity to ask questions and assume patient care.
--- NOTE | 2022-01-08 06:36 | NUR ---
Problems reprioritized. Patient report given, questions answered & plan of care reviewed with eFly OLMOS.
[2022-01-08] MEDS: ondansetron/PF 4mg/2ml inj IV PRN (07:03)
[2022-01-08] MEDS: piperacillin/tazo 3.375gm/50ml 50 ML IV SCH (07:06)
[2022-01-08] MEDS: docusate sod 100mg capsule PO SCH ×2 (08:00→20:00)
[2022-01-08] MEDS: K and/or MAG REPLACEMENT MC SCH ×2 (08:00→20:00)
[2022-01-08 09:29] LABS: ALBUMIN 3.3 G/DL (3.4-5.0); ANION GAP 12 (8-16); BLOOD UREA NITROGEN 25 MG/DL (7-18); BUN/CREATININE RATIO 14.5 (6.6-38.0); CALCIUM 8.8 MG/DL (8.5-10.1); CHLORIDE 102 MMOL/L (99-107); CREATININE 1.72 MG/DL (0.40-0.90); GLUCOSE 201 MG/DL (70-104); POTASSIUM 3.8 MMOL/L (3.5-5.1); SODIUM 139 MMOL/L (135-145); TOTAL CARBON DIOXIDE 25.4 MMOL/L (24-32); eGFR 30 ML/MIN
[2022-01-08] MEDS: Ursodiol 300mg capsule PO SCH (09:56)
[2022-01-08] MEDS: spironolactone 50 MG tablet PO SCH ×3 (09:57→20:24)
[2022-01-08] MEDS ORDERED: metoclopramide 5 mg/ml inj IV PRN (10:40)
--- NOTE | 2022-01-08 13:33 | NUR ---
ACTUARIAL CONSULTANT documentation: I have reviewed and agree with all interventions, assessments performed and documented by SNOW ESPARZA.
--- NOTE | 2022-01-08 17:27 | NUR ---
SNOW Medication Administration: For this medication-pass time frame, all medication were reviewed, dispensed, administered and documented per hospital policy by SNOW ESPARZA.
[2022-01-08] MEDS: HYDROcodone/acetaminophen 10/325mg tab PO PRN (17:56)
--- NOTE | 2022-01-08 18:29 | NUR ---
Problems reprioritized. Patient report given, questions answered & plan of care reviewed with Polly OLMOS.
[2022-01-09 02:00] VITALS: BP 103/54
--- NOTE | 2022-01-09 06:33 | NUR ---
Problems reprioritized. Patient report given, questions answered & plan of care reviewed with Rickie OLMOS.
--- NOTE | 2022-01-09 06:57 | NUR ---
Patient in room PCU 3027. I have received report from PUNEET OLMOS and had the opportunity to ask questions and assume patient care.
[2022-01-09 07:12] VITALS: BP 109/50
[2022-01-09] MEDS: docusate sod 100mg capsule PO SCH ×2 (08:00→19:04)
[2022-01-09] MEDS: K and/or MAG REPLACEMENT MC SCH ×2 (08:00→19:27)
[2022-01-09] MEDS: spironolactone 50 MG tablet PO SCH ×3 (08:08→20:24)
[2022-01-09] MEDS: pantoprazole 40mg Tablet.DR PO SCH (08:08)
[2022-01-09] MEDS: normal saline 1000ml 1,000 ML IV SCH ×2 (08:11→21:45)
[2022-01-09] MEDS: ondansetron/PF 4mg/2ml inj IV PRN (09:41)
--- NOTE | 2022-01-09 10:21 | NUR ---
Page Sent PAGER ID: [phone] MESSAGE: [phone] topher welch, pt was having N/V i gave zofran but this did not work she is still having N/V can i get something else. thanks [facility]
[2022-01-09 10:59] VITALS: BP 145/56
[2022-01-09] MEDS: proCHLORperazine 10 MG/2 ml inj IV PRN ×2 (11:58→20:24)
[2022-01-09 12:38] LABS: BASOPHILS % (AUTO) 0.1 % (0-1); EOSINOPHILS % (AUTO) 0 % (0-6); HEMATOCRIT 32.8 % (35.0-45.0); HEMOGLOBIN 11.2 g/dl (12.0-16.0); LYMPHOCYTES # (AUTO) 0.4 X10'3 (1.1-4.8); LYMPHOCYTES % (AUTO) 5.6 % (21-51); MEAN CORPUSCULAR HEMOGLOBIN 30.7 PG (27.0-31.0); MEAN CORPUSCULAR VOLUME 90.3 FL (78-98); MEAN PLATELET VOLUME 7.7 FL (7.4-10.4); MONOCYTES # (AUTO) 0.3 X10'3 (0-0.9); MONOCYTES % (AUTO) 4.7 % (2-12); NEUTROPHILS # (AUTO) 6.2 X10'3 (1.8-7.7); NEUTROPHILS % (AUTO) 89.6 % (42-75); PLATELET COUNT 85 X10'3 (140-440); RED BLOOD COUNT 3.63 X10'6 (4.20-5.60); RED CELL DISTRIBUTION WIDTH 13.3 % (11.5-14.5); WHITE BLOOD COUNT 6.9 X10'3 (4.5-11.0)
[2022-01-09 12:43] LABS: ALANINE AMINOTRANSFERASE 35 U/L (12-78); ALBUMIN 3.5 G/DL (3.4-5.0); ALBUMIN/GLOBULIN RATIO 1.1 (1.1-1.5); ALKALINE PHOSPHATASE 75 IU/L (46-116); ASPARTATE AMINO TRANSFERASE 41 U/L (10-37); BILIRUBIN,TOTAL 0.7 MG/DL (0.1-1.0); BLOOD UREA NITROGEN 22 MG/DL (7-18); BUN/CREATININE RATIO 16.2 (6.6-38.0); CALCIUM 8.7 MG/DL (8.5-10.1); CREATININE 1.36 MG/DL (0.40-0.90); GLUCOSE 179 MG/DL (70-104); LIPASE 721 U/L (73-393); TOTAL CARBON DIOXIDE 25.1 MMOL/L (24-32); TOTAL PROTEIN 6.6 G/DL (6.4-8.2); eGFR 39 ML/MIN
[2022-01-09 12:49] LABS: ANION GAP 10 (8-16); CHLORIDE 103 MMOL/L (99-107); POTASSIUM 3.1 MMOL/L (3.5-5.1); SODIUM 138 MMOL/L (135-145)
--- NOTE | 2022-01-09 13:15 | NUR ---
Page Sent PAGER ID: [phone] MESSAGE: [phone] topher Valeiro, pt labs are back K is 3.1 and lipase 721. can i start her on some K per protocol? saul king
--- NOTE | 2022-01-09 14:18 | NUR ---
Page Sent PAGER ID: [phone] MESSAGE: [phone] topher Griffin pt would like to know if she can have ice chips. please let me know thanks. saul king
[2022-01-09 15:00] VITALS: BP 150/67
[2022-01-09] MEDS ORDERED: potassium Cl 40MEQ/1/2NS 520ml 520 ML IV PRN ×2 (15:05)
[2022-01-09] MEDS ORDERED: magnesium 2GM in 50ml NS 50 ML IV PRN (15:05)
[2022-01-09] MEDS ORDERED: magnesium 4gm in 100ml NS 100 ML IV PRN (15:05)
[2022-01-09] MEDS ORDERED: potassium Cl 20 mEq SR tablet PO PRN ×2 (15:05)
[2022-01-09] MEDS ORDERED: magnesium Cl slow-release 64mg tablet PO PRN (15:05)
[2022-01-09] MEDS ORDERED: POTASSIUM BICARB 20meq eff tab 20 MEQ TABLET.EFF PO PRN (15:12)
[2022-01-09] MEDS: POTASSIUM BICARB 20meq eff tab 20 MEQ TABLET.EFF PO PRN ×2 (15:18→20:24)
[2022-01-09 18:00] VITALS: BP 116/65
--- NOTE | 2022-01-09 18:04 | NUR ---
Problems reprioritized. Patient report given, questions answered & plan of care reviewed with paige garvey.
[2022-01-09] MEDS: HYDROcodone/acetaminophen 10/325mg tab PO PRN (19:04)
[2022-01-09 22:00] VITALS: BP 110/53
[2022-01-10 02:00] VITALS: BP 96/54
[2022-01-10 06:26] LABS: MAGNESIUM 1.9 MG/DL (1.5-2.4)
[2022-01-10 06:44] LABS: POTASSIUM 3.8 MMOL/L (3.5-5.1)
[2022-01-10] MEDS: normal saline 1000ml 1,000 ML IV SCH (08:30)
[2022-01-10] MEDS: spironolactone 50 MG tablet PO SCH (08:30)
[2022-01-10] MEDS: docusate sod 100mg capsule PO SCH (08:30)
[2022-01-10] MEDS: K and/or MAG REPLACEMENT MC SCH (08:30)
[2022-01-10] MEDS: pantoprazole 40mg Tablet.DR PO SCH (09:21)
[2022-01-10] MEDS ORDERED: METO-292 PO (11:15)
[2022-01-10 11:30] VITALS: BP 121/58
--- NOTE | 2022-01-10 14:52 | NUR ---
DISCHARGE INSTRUCTIONS PROVIDED. PT PROVIDED WITH INFORMATION ABOUT FOLLOW UP SERGE. WITH . PT VERBALIZED UNDERSTANDING. PT GOT PICKED UP BY HER AROUND [id number].
== END 2022-01-10 13:37 | disposition home or self-care (01) | DRG 417 ==
LOC: ER 15:59 → ED HOLD 20:28 → EDBEDREQ 01-01 06:28 → CICU 2S 01-01 08:44 → PCU 3S 01-01 17:15
PROVIDERS: ADMIT Family Medicine; ATTEND Internal Medicine
PROC: 8E0W4CZ Robotic Assisted Procedure of Trunk Region, Percutaneous Endoscopic Approach (ICD-10-PCS; 2022-01-07)
PROC: BF532Z0 Other Imaging of Gallbladder and Bile Ducts using Fluorescing Agent, Intraoperative (ICD-10-PCS; 2022-01-07)
PROC: 0FT44ZZ Resection of Gallbladder, Percutaneous Endoscopic Approach (ICD-10-PCS; principal; 2022-01-07 13:48)
DX: K80.01 Calculus of gallbladder with acute cholecystitis with obstruction (principal); K85.10 Biliary acute pancreatitis without necrosis or infection; N17.0 Acute kidney failure with tubular necrosis; N39.0 Urinary tract infection, site not specified; E87.1 Hypo-osmolality and hyponatremia; E87.20 Acidosis, unspecified; K76.6 Portal hypertension; I13.0 Hypertensive heart and chronic kidney disease with heart failure and stage 1 through stage 4 chronic kidney disease, or unspecified chronic kidney disease; I50.20 Unspecified systolic (congestive) heart failure; K72.10 Chronic hepatic failure without coma; I95.9 Hypotension, unspecified; D69.6 Thrombocytopenia, unspecified; D63.8 Anemia in other chronic diseases classified elsewhere; R16.1 Splenomegaly, not elsewhere classified; E87.6 Hypokalemia; E11.43 Type 2 diabetes mellitus with diabetic autonomic (poly)neuropathy; K31.84 Gastroparesis; N18.30 Chronic kidney disease, stage 3 unspecified; E11.22 Type 2 diabetes mellitus with diabetic chronic kidney disease; E11.65 Type 2 diabetes mellitus with hyperglycemia; E27.8 Other specified disorders of adrenal gland; E86.1 Hypovolemia; K21.9 Gastro-esophageal reflux disease without esophagitis; K52.9 Noninfective gastroenteritis and colitis, unspecified; K57.90 Diverticulosis of intestine, part unspecified, without perforation or abscess without bleeding; K74.60 Unspecified cirrhosis of liver; K76.0 Fatty (change of) liver, not elsewhere classified; Z79.899 Other long term (current) drug therapy
CPT/HCPCS: 36415; 36600; 74176; 76700; 80048; 80053; 80305; 80320; 81001; 82271; 82550; 82803; 82948; 83036; 83605; 83690; 83735; 83880; 84100; 84132; 84145; 84443; 84484; 85018; 85025; 85610; 85730; 86885; 86900; 86901; 87040; 87077; 87081; 87088; 87186; 93306; 93971; 96365; 96375; 99291; A4215; A4615; A4618; A6213; A6258; A7000; C9113; G0378; J0696; J0780; J1265; J1815; J1885; J2060; J2250; J2270; J2405; J2543; J2704; J2765; J3010; J3490; J7030; J7040; J7120; P9047; S0020

== ENCOUNTER 2023-04-10 07:25 | Emergency (ER) | payer MEDICARE, MEDICAID ==
[~2023-04-10] VITALS: Ht 160 cm; Wt 86.0 kg
[~2023-04-10 07:25] MED LIST changes: -FURO20TA4 PO; +LACT10SO7 PO; -METF-438 PO; -METO5TAB98 PO; -NADO40TA4 PO; -OMEP20CA16 PO; -PROC10TA10 PO; -SEMA0.25; -SPIR50TA5 PO
[2023-04-10 07:36] VITALS: TEMP 99.1
[2023-04-10] MEDS: normal saline 1000ml 1,000 ML IV ONE (09:03)
[2023-04-10] MEDS: aspirin 325mg tablet PO ONE (09:03)
[2023-04-10] MEDS: nitroGLYCERIN 1gm ointment UD TP ONE (09:03)
[2023-04-10 09:56] LABS: BASOPHILS % (AUTO) 0.3 % (0-1); EOSINOPHILS # (AUTO) 0.1 X10'3 (0-0.9); EOSINOPHILS % (AUTO) 3.5 % (0-6); HEMATOCRIT 25.9 % (35.0-45.0); HEMOGLOBIN 8.6 g/dl (12.0-16.0); LYMPHOCYTES # (AUTO) 0.2 X10'3 (1.1-4.8); LYMPHOCYTES % (AUTO) 6.5 % (21-51); MEAN CORPUSCULAR HEMOGLOBIN 28.4 PG (27.0-31.0); MEAN CORPUSCULAR HGB CONC 33.4 g/dL (33.0-36.5); MEAN CORPUSCULAR VOLUME 84.9 FL (78-98); MONOCYTES # (AUTO) 0.5 X10'3 (0-0.9); MONOCYTES % (AUTO) 13.5 % (2-12); NEUTROPHILS # (AUTO) 2.8 X10'3 (1.8-7.7); NEUTROPHILS % (AUTO) 76.2 % (42-75); PLATELET COUNT 89 X10'3 (140-440); RED BLOOD COUNT 3.04 X10'6 (4.20-5.60); RED CELL DISTRIBUTION WIDTH 15.1 % (11.5-14.5); WHITE BLOOD COUNT 3.7 X10'3 (4.5-11.0)
[2023-04-10 10:05] LABS: D-DIMER 1.11 MG/L FEU (0-0.50)
[2023-04-10 11:34] LABS: ALANINE AMINOTRANSFERASE 18 U/L (12-78); ALBUMIN/GLOBULIN RATIO 0.9 (1.1-1.5); ALKALINE PHOSPHATASE 83 IU/L (46-116); ANION GAP 9 (8-16); ASPARTATE AMINO TRANSFERASE 21 U/L (10-37); BILIRUBIN,TOTAL 0.8 MG/DL (0.1-1.0); BLOOD UREA NITROGEN 31 MG/DL (7-18); BUN/CREATININE RATIO 25.6 (10.0-20.0); CALCIUM 7.9 MG/DL (8.5-10.1); CHLORIDE 107 MMOL/L (99-107); CREATININE 1.21 MG/DL (0.40-0.90); GLUCOSE 152 MG/DL (70-104); POTASSIUM 4.4 MMOL/L (3.5-5.1); SODIUM 142 MMOL/L (135-145); TOTAL CARBON DIOXIDE 26.1 MMOL/L (24-32); TOTAL PROTEIN 6.3 G/DL (6.4-8.2); eCRCL 38 ML/MIN; eGFR 45 ML/MIN
[2023-04-10 11:47] LABS: BILIRUBIN,DIRECT 0.2 MG/DL (0-0.3); LIPASE 93 U/L (16-77); PRO BRAIN NATRIURETIC PEPTIDE 58 PG/ML (0-125)
[2023-04-10] MEDS ORDERED: HYDR-3965 PO (12:24)
[2023-04-10 12:42] VITALS: BP 109/64; PULSE 76; RESP 16; O2SAT 94
== END 2023-04-10 12:43 | disposition home or self-care (01) ==
LOC: ER 07:26
DX: R07.9 Chest pain, unspecified (principal); K43.9 Ventral hernia without obstruction or gangrene; E11.9 Type 2 diabetes mellitus without complications; I10 Essential (primary) hypertension; Z79.899 Other long term (current) drug therapy
CPT/HCPCS: 36415; 71045; 74176; 80048; 80076; 83690; 83880; 84484; 85025; 85379; 93005; 96360; 96361; 99285; J7030

== ENCOUNTER 2023-12-09 00:31 | Inpatient (IN) | payer MEDICARE, MEDICAID ==
[2023-12-09] VITALS (7 sets, daily range): BP systolic 102–130; BP diastolic 46–68; PULSE 76–85; RESP 14–20; TEMP 97.4–98.7; O2SAT 95–98
[~2023-12-09] VITALS: Ht 160 cm; Wt 79.8 kg
[2023-12-09] MEDS: ondansetron/PF 4mg/2ml inj IV ONE (00:54)
[2023-12-09 01:10] LABS: ALANINE AMINOTRANSFERASE 31 U/L (12-78); ALBUMIN 4.2 G/DL (3.4-5.0); ALBUMIN/GLOBULIN RATIO 1.1 (1.1-1.5); ALKALINE PHOSPHATASE 105 IU/L (46-116); ANION GAP 9 (8-16); ASPARTATE AMINO TRANSFERASE 44 U/L (10-37); BILIRUBIN,TOTAL 1.4 MG/DL (0.1-1.0); BLOOD UREA NITROGEN 36 MG/DL (7-18); BUN/CREATININE RATIO 18.3 (10.0-20.0); CALCIUM 9.1 MG/DL (8.5-10.1); CHLORIDE 97 MMOL/L (99-107); CREATININE 1.97 MG/DL (0.40-0.90); GLUCOSE 175 MG/DL (70-104); LIPASE 158 U/L (16-77); POTASSIUM 4.3 MMOL/L (3.5-5.1); SODIUM 132 MMOL/L (135-145); TOTAL CARBON DIOXIDE 25.6 MMOL/L (24-32); TOTAL PROTEIN 8.1 G/DL (6.4-8.2); eCRCL 23 ML/MIN; eGFR 25 ML/MIN
[2023-12-09] MEDS: LORazepam 2 mg/ml vial IV ONE (01:27)
[2023-12-09 01:31] LABS: EOSINOPHILS # (AUTO) 0.1 X10'3 (0-0.9); HEMOGLOBIN 14.7 g/dl (12.0-16.0); LYMPHOCYTES # (AUTO) 0.8 X10'3 (1.1-4.8)
[2023-12-09 01:33] LABS: BASOPHILS % (AUTO) 0.3 % (0-1); HEMATOCRIT 42.9 % (35.0-45.0); LYMPHOCYTES % (AUTO) 9.6 % (21-51); MEAN CORPUSCULAR HEMOGLOBIN 30.2 PG (27.0-31.0); MEAN CORPUSCULAR HGB CONC 34.2 g/dL (33.0-36.5); MEAN CORPUSCULAR VOLUME 88.4 FL (78-98); MEAN PLATELET VOLUME 8.5 FL (7.4-10.4); MONOCYTES # (AUTO) 0.6 X10'3 (0-0.9); MONOCYTES % (AUTO) 6.7 % (2-12); NEUTROPHILS # (AUTO) 6.9 X10'3 (1.8-7.7); NEUTROPHILS % (AUTO) 82.4 % (42-75); PLATELET COUNT 126 X10'3 (140-440); RED BLOOD COUNT 4.86 X10'6 (4.20-5.60); RED CELL DISTRIBUTION WIDTH 13.3 % (11.5-14.5); WHITE BLOOD COUNT 8.4 X10'3 (4.5-11.0)
[2023-12-09] MEDS: pantoprazole 40 MG vial IV ONE (02:08)
[2023-12-09] MEDS: normal saline 1000ML IV soln IVB ONE (02:09)
[2023-12-09] MEDS: haloperidol lactate 5mg/ml inj IM ONE ×2 (02:11→03:45)
[2023-12-09] MEDS: morphine 2 MG/ML inj. syringe IV PRN (02:15)
[2023-12-09] MEDS ORDERED: potassium Cl 40MEQ/1/2NS 520ml 520 ML IV PRN (02:50)
[2023-12-09] MEDS ORDERED: magnesium Cl slow-release 64mg tablet PO PRN (02:50)
[2023-12-09] MEDS ORDERED: potassium Cl 20 mEq SR tablet PO PRN (02:50)
[2023-12-09] MEDS ORDERED: HYDROcodone/acetaminophen 5mg/325mg tablet PO PRN (02:50)
[2023-12-09] MEDS ORDERED: mag hydrox/Alum hydrox/simeth 30ml oral suspension PO PRN (02:50)
[2023-12-09] MEDS ORDERED: magnesium sulf-water 2g/50mL 50 ML IV PRN (02:50)
[2023-12-09] MEDS ORDERED: magnesium sulf-water 4G/100mL 100 ML IV PRN (02:50)
[2023-12-09] MEDS ORDERED: acetaminophen 325mg tablet PO PRN ×2 (02:50)
[2023-12-09 03:11] LABS: HEMOGLOBIN A1C 6.3 % (4.5-6.2)
[2023-12-09] MEDS: ringers solution, lacted 1,000 ML IV SCH ×2 (03:50→22:39)
[2023-12-09 04:18] LABS: BILIRUBIN,URINE NEGATIVE (Neg); COLOR,URINE YELLOW (Yellow); GLUCOSE, URINE >=1000 mg/dl (Neg); KETONES,URINE TRACE mg/dl (Neg); LEUKOCYTE ESTERASE ,URINE NEGATIVE (Neg); NITRITES, URINE NEGATIVE (Neg); OCCULT BLOOD,URINE NEGATIVE (Neg); PROTEIN,URINE NEGATIVE (Neg); UROBILINOGEN,URINE 0.2 E.U/dL (0.2-1.0)
[2023-12-09 04:23] LABS: UA COLLECTION TYPE CLN CATCH MIDSTREAM
[2023-12-09 04:25] LABS: BACTERIA,URINE 1+ /HPF (Neg); CLARITY,URINE SLIGHTLY CLOUDY (Clear); MUCUS STRANDS MODERATE /LPF (Neg); RBC,URINE 0-2 /HPF (0-2); SQUAMOUS EPITHELIAL CELL,UR MODERATE /LPF (FEW); TRANSITIONAL EPI CELLS,URINE FEW /HPF; WBC,URINE 0-4 /HPF (0-4)
[2023-12-09 05:03] LABS: URINE AMPHETAMINE SCREEN NEGATIVE (Neg); URINE BARBITUATE SCREEN NEGATIVE (Neg); URINE BENZODIAZEPINES SCREEN NEGATIVE (Neg); URINE CANNABINOID SCREEN NEGATIVE (Neg); URINE COCAINE SCREEN NEGATIVE (Neg); URINE METHADONE SCREEN NEGATIVE (Neg); URINE OPIATE SCREEN POSITIVE (Neg); URINE PHENCYCLIDINE SCREEN NEGATIVE (Neg)
[2023-12-09] MEDS ORDERED: DEXTROSE 15 GM of carb/4 tabs (each vial/BOTTLE has 4 tablets) PO PRN ×2 (05:40)
[2023-12-09] MEDS ORDERED: glucagon, human recombinant 1mg kit SUBCUT PRN (05:40)
[2023-12-09] MEDS ORDERED: dextrose 50%-water 50ml dispensing syringe IV PRN ×2 (05:40)
[2023-12-09] MEDS: ondansetron/PF 4mg/2ml inj IV PRN (07:53)
[2023-12-09] MEDS: heparin, porcine 5000 units/ml vial SQ SCH (07:54)
[2023-12-09] MEDS: potassium Cl 20 mEq SR tablet PO PRN (07:54)
[2023-12-09] MEDS: K and/or MAG REPLACEMENT MC SCH (08:02)
[2023-12-09] MEDS: INSULIN LISPRO 100 UNIT/ML INSULN.PEN MULTI-DOSE SQ SCH ×2 (08:05→09:00)
[2023-12-09] MEDS: dextrose 5%-normal saline 1,000 ML IV SCH (14:20)
[2023-12-09] MEDS: pantoprazole 40 MG vial IV SCH (15:50)
[2023-12-09 15:56] LABS: CREATININE 1.78 MG/DL (0.40-0.90); OSMOLALITY 304 MOSM/K (280-300); SODIUM 135 MMOL/L (135-145); eCRCL 26 ML/MIN; eGFR 29 ML/MIN
[2023-12-09] MEDS: metoclopramide 5 mg/ml inj IV PRN (19:38)
[2023-12-09] MEDS: insulin glargine (Lantus) pen - multi-dose SQ SCH (22:42)
[2023-12-10] VITALS (7 sets, daily range): BP systolic 101–119; BP diastolic 46–68; PULSE 64–77; RESP 12–18; TEMP 97.3–98.1; O2SAT 95–98
[2023-12-10 06:06] LABS: BASOPHILS % (AUTO) 0.1 % (0-1); EOSINOPHILS % (AUTO) 0 % (0-6); HEMATOCRIT 36.8 % (35.0-45.0); HEMOGLOBIN 12.9 g/dl (12.0-16.0); LYMPHOCYTES # (AUTO) 0.3 X10'3 (1.1-4.8); LYMPHOCYTES % (AUTO) 3.7 % (21-51); MEAN CORPUSCULAR HEMOGLOBIN 31.6 PG (27.0-31.0); MEAN CORPUSCULAR HGB CONC 35.2 g/dL (33.0-36.5); MEAN CORPUSCULAR VOLUME 89.8 FL (78-98); MEAN PLATELET VOLUME 8.4 FL (7.4-10.4); MONOCYTES # (AUTO) 0.5 X10'3 (0-0.9); MONOCYTES % (AUTO) 5.5 % (2-12); NEUTROPHILS # (AUTO) 7.9 X10'3 (1.8-7.7); NEUTROPHILS % (AUTO) 90.7 % (42-75); PLATELET COUNT 84 X10'3 (140-440); RED BLOOD COUNT 4.09 X10'6 (4.20-5.60); RED CELL DISTRIBUTION WIDTH 13.2 % (11.5-14.5); WHITE BLOOD COUNT 8.7 X10'3 (4.5-11.0)
[2023-12-10 06:15] LABS: INR 1.2 INR
[2023-12-10 06:22] LABS: ALBUMIN 3.2 G/DL (3.4-5.0); ANION GAP 7 (8-16); BLOOD UREA NITROGEN 36 MG/DL (7-18); BUN/CREATININE RATIO 22.5 (10.0-20.0); CALCIUM 8.2 MG/DL (8.5-10.1); CHLORIDE 103 MMOL/L (99-107); CHOLESTEROL 144 MG/DL (0-200); GLUCOSE 168 MG/DL (70-104); HDL CHOLESTEROL 48 MG/DL (35-60); LDL CHOLESTEROL 84 MG/DL (50-100); MAGNESIUM 2.4 MG/DL (1.5-2.4); PHOSPHORUS 3.2 MG/DL (2.3-4.5); POTASSIUM 4.2 MMOL/L (3.5-5.1); SODIUM 136 MMOL/L (135-145); TOTAL CARBON DIOXIDE 26.5 MMOL/L (24-32); TRIGLYCERIDES 97 MG/DL (20-135); eCRCL 29 ML/MIN; eGFR 32 ML/MIN
[2023-12-10 12:14] LABS: LIPASE > 375 U/L (16-77)
[2023-12-10] MEDS: HYDROcodone/acetaminophen 10/325mg tab PO PRN (17:29)
[2023-12-10] MEDS: pantoprazole 40mg Tablet.DR PO SCH (19:09)
[2023-12-11 06:00] VITALS: BP 112/63; PULSE 69; RESP 15; TEMP 98.3; O2SAT 95
[2023-12-11 06:17] LABS: ALBUMIN 3.3 G/DL (3.4-5.0); ANION GAP 7 (8-16); BLOOD UREA NITROGEN 11 MG/DL (7-18); BUN/CREATININE RATIO 15.3 (10.0-20.0); CALCIUM 8.8 MG/DL (8.5-10.1); CHLORIDE 101 MMOL/L (99-107); CREATININE 0.72 MG/DL (0.40-0.90); GLUCOSE 92 MG/DL (70-104); MAGNESIUM 1.7 MG/DL (1.5-2.4); PHOSPHORUS 2.5 MG/DL (2.3-4.5); POTASSIUM 3.9 MMOL/L (3.5-5.1); SODIUM 136 MMOL/L (135-145); TOTAL CARBON DIOXIDE 28.1 MMOL/L (24-32); eCRCL 64 ML/MIN; eGFR 81 ML/MIN
[2023-12-11 06:20] LABS: BASOPHILS # (AUTO) 0.1 X10'3 (0-0.2); BASOPHILS % (AUTO) 0.9 % (0-1); EOSINOPHILS # (AUTO) 0.1 X10'3 (0-0.9); EOSINOPHILS % (AUTO) 0.9 % (0-6); HEMATOCRIT 37.6 % (35.0-45.0); HEMOGLOBIN 12.5 g/dl (12.0-16.0); LYMPHOCYTES # (AUTO) 2.4 X10'3 (1.1-4.8); LYMPHOCYTES % (AUTO) 24.6 % (21-51); MEAN CORPUSCULAR HEMOGLOBIN 29.6 PG (27.0-31.0); MEAN CORPUSCULAR HGB CONC 33.3 g/dL (33.0-36.5); MEAN CORPUSCULAR VOLUME 88.9 FL (78-98); MEAN PLATELET VOLUME 8.8 FL (7.4-10.4); MONOCYTES # (AUTO) 0.8 X10'3 (0-0.9); MONOCYTES % (AUTO) 8.6 % (2-12); NEUTROPHILS # (AUTO) 6.3 X10'3 (1.8-7.7); PLATELET COUNT 386 X10'3 (140-440); RED BLOOD COUNT 4.23 X10'6 (4.20-5.60); RED CELL DISTRIBUTION WIDTH 14.7 % (11.5-14.5); WHITE BLOOD COUNT 9.8 X10'3 (4.5-11.0)
[2023-12-11 08:00] VITALS: RESP 15; O2SAT 95
[2023-12-11] MEDS: psyllium seed 5.8 gm packet (sugar-free) PO ONE (10:20)
[2023-12-11] MEDS ORDERED: PANT40TA54 PO (10:28)
[2023-12-11] MEDS: lactulose 20gm/30ml cup PO SCH (15:14)
[2023-12-11] MEDS: magnesium citrate 296ml oral solution PO ONE (15:14)
[2023-12-11] MEDS ORDERED: LISI5TAB22 PO (17:44)
[2023-12-11] MEDS ORDERED: SITA25TA3 PO (17:44)
[2023-12-11] MEDS ORDERED: CHOL20002 PO (17:44)
[2023-12-11] MEDS ORDERED: EMPA25TA PO (17:44)
[2023-12-11] MEDS ORDERED: FERR-39 PO (17:44)
[2023-12-11] MEDS ORDERED: SPIR50TA5 (17:44)
[2023-12-11] MEDS ORDERED: FURO20TA4 PO (17:44)
[2023-12-11 18:00] VITALS: BP 111/57; PULSE 65; RESP 16; TEMP 97.9; O2SAT 97
[2023-12-11] MEDS ORDERED: FURO-150 PO (18:02)
[2023-12-11] MEDS ORDERED: SPIR50TA5 PO (18:02)
[2023-12-11 22:00] VITALS: BP 105/44; PULSE 59; RESP 17; TEMP 97.8; O2SAT 97
[2023-12-12] MEDS ORDERED: TIRZ7.5P (02:26)
[2023-12-12 06:00] VITALS: BP 107/50; PULSE 57; RESP 16; TEMP 98.1; O2SAT 98
[2023-12-12 06:19] LABS: ANION GAP 5 (8-16); BLOOD UREA NITROGEN 19 MG/DL (7-18); CHLORIDE 104 MMOL/L (99-107); CREATININE 1.27 MG/DL (0.40-0.90); GLUCOSE 103 MG/DL (70-104); LIPASE 245 U/L (16-77); MAGNESIUM 2.3 MG/DL (1.5-2.4); PHOSPHORUS 2.6 MG/DL (2.3-4.5); POTASSIUM 3.7 MMOL/L (3.5-5.1); SODIUM 137 MMOL/L (135-145); TOTAL CARBON DIOXIDE 28.3 MMOL/L (24-32); eCRCL 36 ML/MIN; eGFR 42 ML/MIN
[2023-12-12 08:00] LABS: BASOPHILS % (AUTO) 0.4 % (0-1); EOSINOPHILS # (AUTO) 0.1 X10'3 (0-0.9); HEMOGLOBIN 11.6 g/dl (12.0-16.0); MONOCYTES # (AUTO) 0.3 X10'3 (0-0.9)
[2023-12-12] MEDS: furosemide 20MG tablet PO SCH (08:00)
[2023-12-12 08:02] LABS: EOSINOPHILS % (AUTO) 2.4 % (0-6); HEMATOCRIT 34.6 % (35.0-45.0); LYMPHOCYTES # (AUTO) 0.7 X10'3 (1.1-4.8); LYMPHOCYTES % (AUTO) 24.7 % (21-51); MEAN CORPUSCULAR HGB CONC 33.5 g/dL (33.0-36.5); MEAN CORPUSCULAR VOLUME 89.5 FL (78-98); MEAN PLATELET VOLUME 8.3 FL (7.4-10.4); MONOCYTES % (AUTO) 10.3 % (2-12); NEUTROPHILS # (AUTO) 1.7 X10'3 (1.8-7.7); NEUTROPHILS % (AUTO) 62.2 % (42-75); RED BLOOD COUNT 3.86 X10'6 (4.20-5.60); RED CELL DISTRIBUTION WIDTH 13.2 % (11.5-14.5); WHITE BLOOD COUNT 2.7 X10'3 (4.5-11.0)
[2023-12-12 08:07] LABS: PLATELET COUNT 68 X10'3 (140-440)
[2023-12-12] MEDS: pantoprazole 40mg Tablet.DR PO SCH (08:23)
[2023-12-12 08:59] LABS: PLATELET ESTIMATE DECREASED; TOTAL CELLS COUNTED 100
[2023-12-12 09:54] LABS: BASOPHILS % (AUTO) 0.3 % (0-1); EOSINOPHILS # (AUTO) 0.1 X10'3 (0-0.9); EOSINOPHILS % (AUTO) 2.6 % (0-6); HEMATOCRIT 40.1 % (35.0-45.0); HEMOGLOBIN 13.4 g/dl (12.0-16.0); LYMPHOCYTES # (AUTO) 0.5 X10'3 (1.1-4.8); LYMPHOCYTES % (AUTO) 17.4 % (21-51); MEAN CORPUSCULAR HEMOGLOBIN 29.9 PG (27.0-31.0); MEAN CORPUSCULAR HGB CONC 33.3 g/dL (33.0-36.5); MEAN CORPUSCULAR VOLUME 89.6 FL (78-98); MONOCYTES # (AUTO) 0.3 X10'3 (0-0.9); MONOCYTES % (AUTO) 10.6 % (2-12); NEUTROPHILS # (AUTO) 2.2 X10'3 (1.8-7.7); NEUTROPHILS % (AUTO) 69.1 % (42-75); PLATELET COUNT 80 X10'3 (140-440); RED BLOOD COUNT 4.48 X10'6 (4.20-5.60); RED CELL DISTRIBUTION WIDTH 13.6 % (11.5-14.5); WHITE BLOOD COUNT 3.1 X10'3 (4.5-11.0)
[2023-12-12 10:00] VITALS: BP 149/71; PULSE 57; RESP 18; TEMP 97.7; O2SAT 99
[2023-12-12] MEDS: spironolactone 50 MG tablet PO SCH (12:05)
[2023-12-12] MEDS: lisinopril 5mg tablet PO SCH (12:05)
[2023-12-12] MEDS: EMPAGLIFLOZIN 25 MG TABLET PO SCH (12:05)
[2023-12-12] MEDS ORDERED: LACT10SO7 PO (12:23)
[2023-12-13] MEDS ORDERED: ferrous sulfate 325mg tablet PO SCH (08:00)
[2023-12-13] MEDS ORDERED: cholecalciferol (vitamin D3) 1,000 unit (25mcg) tablet PO SCH (08:00)
[2023-12-13] MEDS ORDERED: non-formulary drug (Sitagliptin Phosphate* (Januvia*) 1 TAB) PO SCH (08:00)
== END 2023-12-12 12:55 | disposition home or self-care (01) | DRG 438 ==
LOC: ER 00:32 → ED HOLD 02:51 → EDBEDREQ 05:07 → ORTHO 4S 05:39
PROVIDERS: ADMIT Internal Medicine Pulmonary Disease; ATTEND Family Medicine
DX: K85.90 Acute pancreatitis without necrosis or infection, unspecified (principal); N17.0 Acute kidney failure with tubular necrosis; K76.6 Portal hypertension; K29.00 Acute gastritis without bleeding; N18.9 Chronic kidney disease, unspecified; I12.9 Hypertensive chronic kidney disease with stage 1 through stage 4 chronic kidney disease, or unspecified chronic kidney disease; E11.22 Type 2 diabetes mellitus with diabetic chronic kidney disease; K74.69 Other cirrhosis of liver; K86.1 Other chronic pancreatitis; Z90.49 Acquired absence of other specified parts of digestive tract
CPT/HCPCS: 36415; 74176; 80048; 80053; 80061; 80305; 81001; 82565; 82570; 82948; 83036; 83690; 83735; 83930; 83935; 84100; 84295; 84300; 85007; 85025; 85610; 97116; 97161; 97530; 99285; G0378; J1630; J1644; J1815; J2060; J2270; J2405; J2470; J2765; J7030; J7042; J7120

== ENCOUNTER 2024-05-12 04:01 | Emergency (ER) | payer MEDICARE, MEDICAID ==
[~2024-05-12] VITALS: Ht 160 cm; Wt 77.3 kg
[~2024-05-12 04:01] MED LIST changes: +CHOL20002 PO; +EMPA25TA PO; +FERR-39 PO; +FURO-150 PO; +LISI5TAB22 PO; +PANT40TA54 PO; +SPIR50TA5 PO; +TIRZ7.5P
[2024-05-12] MEDS: proCHLORperazine 10 MG/2 ml inj IV ONE ×2 (04:26→05:41)
[2024-05-12] MEDS: metoclopramide 5 mg/ml inj IV ONE (04:26)
[2024-05-12] MEDS: diphenhydrAMINE 50 mg/ml inj IV ONE (04:26)
[2024-05-12] MEDS: haloperidol lactate 5mg/ml inj IVH ONE (04:27)
[2024-05-12] MEDS: ondansetron/PF 4mg/2ml inj IV ONE (04:27)
[2024-05-12] MEDS: normal saline 1000ml 1,000 ML IV ONE (05:01)
[2024-05-12] MEDS: LORazepam 2 mg/ml vial IV ONE (05:37)
[2024-05-12] MEDS: diazepam inj 5 MG/ML inj. IV ONE (05:42)
[2024-05-12] MEDS: proMETHazine 25mg rectal suppository RC ONE (05:42)
[2024-05-12 05:48] LABS: BASOPHILS # (AUTO) 0.1 X10'3 (0-0.2); BASOPHILS % (AUTO) 0.8 % (0-1); EOSINOPHILS % (AUTO) 0 % (0-6); HEMATOCRIT 37.2 % (35.0-45.0); HEMOGLOBIN 12.6 g/dl (12.0-16.0); LYMPHOCYTES # (AUTO) 0.3 X10'3 (1.1-4.8); LYMPHOCYTES % (AUTO) 5.2 % (21-51); MEAN CORPUSCULAR HEMOGLOBIN 29.7 PG (27.0-31.0); MEAN CORPUSCULAR HGB CONC 33.8 g/dL (33.0-36.5); MEAN CORPUSCULAR VOLUME 87.8 FL (78-98); MEAN PLATELET VOLUME 8.2 FL (7.4-10.4); MONOCYTES # (AUTO) 0.3 X10'3 (0-0.9); MONOCYTES % (AUTO) 4.4 % (2-12); NEUTROPHILS # (AUTO) 5.4 X10'3 (1.8-7.7); NEUTROPHILS % (AUTO) 89.6 % (42-75); PLATELET COUNT 84 X10'3 (140-440); RED BLOOD COUNT 4.24 X10'6 (4.20-5.60); RED CELL DISTRIBUTION WIDTH 15.3 % (11.5-14.5)
[2024-05-12 06:08] LABS: ALANINE AMINOTRANSFERASE 25 U/L (12-78); ALBUMIN 3.8 G/DL (3.4-5.0); ALKALINE PHOSPHATASE 95 IU/L (46-116); ANION GAP 8 (8-16); ASPARTATE AMINO TRANSFERASE 27 U/L (10-37); BILIRUBIN,TOTAL 1.3 MG/DL (0.1-1.0); BLOOD UREA NITROGEN 34 MG/DL (7-18); BUN/CREATININE RATIO 21.1 (10.0-20.0); CALCIUM 8.7 MG/DL (8.5-10.1); CHLORIDE 103 MMOL/L (99-107); CREATININE 1.61 MG/DL (0.40-0.90); GLUCOSE 218 MG/DL (70-104); POTASSIUM 4.4 MMOL/L (3.5-5.1); SODIUM 137 MMOL/L (135-145); TOTAL CARBON DIOXIDE 26.2 MMOL/L (24-32); TOTAL PROTEIN 7.5 G/DL (6.4-8.2); eCRCL 28 ML/MIN; eGFR 32 ML/MIN
[2024-05-12 08:32] LABS: BILIRUBIN,URINE NEGATIVE (Neg); CLARITY,URINE CLEAR (Clear); COLOR,URINE YELLOW (Yellow); GLUCOSE, URINE >=1000 mg/dl (Neg); KETONES,URINE 15 mg/dl (Neg); LEUKOCYTE ESTERASE ,URINE NEGATIVE (Neg); NITRITES, URINE NEGATIVE (Neg); OCCULT BLOOD,URINE NEGATIVE (Neg); PROTEIN,URINE NEGATIVE (Neg); UROBILINOGEN,URINE 0.2 E.U/dL (0.2-1.0)
[2024-05-12 08:38] LABS: UA COLLECTION TYPE CLN CATCH MIDSTREAM
[2024-05-12 08:39] LABS: BACTERIA,URINE NONE SEEN /HPF (Neg); MUCUS STRANDS NONE SEEN /LPF (Neg); RBC,URINE 0-2 /HPF (0-2); SQUAMOUS EPITHELIAL CELL,UR NONE SEEN /LPF (FEW); WBC,URINE 0-4 /HPF (0-4)
[2024-05-12] MEDS: famotidine/PF 10 mg/ml inj IV ONE (09:06)
[2024-05-12] MEDS: mag hydrox/Alum hydrox/simeth 30ml oral suspension PO ONE (09:10)
[2024-05-12] MEDS: LIDOcaine 2% Viscous 15ml cup MM PRN (09:10)
[2024-05-12] MEDS ORDERED: PROC-8 PO (10:04)
[2024-05-12] MEDS ORDERED: METO10TA3 PO (10:04)
[2024-05-12] MEDS ORDERED: ONDA-245 PO (10:04)
[2024-05-12] MEDS ORDERED: PROM25SU9 RC (10:04)
[2024-05-12 10:20] VITALS: BP 131/76; PULSE 83; RESP 19; TEMP 97.7; O2SAT 97
== END 2024-05-12 10:22 | disposition home or self-care (01) ==
LOC: ER 04:03
DX: R11.15 Cyclical vomiting syndrome unrelated to migraine (principal); I10 Essential (primary) hypertension; E11.9 Type 2 diabetes mellitus without complications; Z90.49 Acquired absence of other specified parts of digestive tract; Z79.899 Other long term (current) drug therapy
CPT/HCPCS: 36415; 80053; 81001; 84484; 85025; 93005; 96361; 96374; 96375; 96376; 99285; A4615; C1758; J0780; J1200; J1630; J2405; J2765; J3360; J3490; J7030

== ENCOUNTER 2024-05-14 19:30 | Emergency (ER) | payer MEDICARE, MEDICAID ==
[~2024-05-14] VITALS: Ht 160 cm; Wt 77.3 kg
[~2024-05-14 19:30] MED LIST changes: +METO10TA3 PO; +ONDA-245 PO; +PROC-8 PO; +PROM25SU9 RC
[2024-05-14 19:39] VITALS: TEMP 97.3
[2024-05-14] MEDS: normal saline 1000ML IV soln IVB ONE ×2 (19:55)
[2024-05-14] MEDS: diphenhydrAMINE 50 mg/ml inj IV ONE (19:56)
[2024-05-14] MEDS: metoclopramide 5 mg/ml inj IV ONE (19:56)
[2024-05-14 20:08] LABS: BASOPHILS % (AUTO) 0.1 % (0-1); EOSINOPHILS % (AUTO) 0.1 % (0-6); HEMATOCRIT 40.1 % (35.0-45.0); HEMOGLOBIN 13.8 g/dl (12.0-16.0); LYMPHOCYTES # (AUTO) 0.5 X10'3 (1.1-4.8); LYMPHOCYTES % (AUTO) 7.1 % (21-51); MEAN CORPUSCULAR HEMOGLOBIN 29.7 PG (27.0-31.0); MEAN CORPUSCULAR HGB CONC 34.4 g/dL (33.0-36.5); MEAN CORPUSCULAR VOLUME 86.3 FL (78-98); MEAN PLATELET VOLUME 7.9 FL (7.4-10.4); MONOCYTES # (AUTO) 0.4 X10'3 (0-0.9); MONOCYTES % (AUTO) 5.8 % (2-12); NEUTROPHILS # (AUTO) 6.4 X10'3 (1.8-7.7); NEUTROPHILS % (AUTO) 86.9 % (42-75); PLATELET COUNT 110 X10'3 (140-440); RED BLOOD COUNT 4.65 X10'6 (4.20-5.60); WHITE BLOOD COUNT 7.3 X10'3 (4.5-11.0)
[2024-05-14 20:19] LABS: ALANINE AMINOTRANSFERASE 30 U/L (12-78); ALBUMIN 4.2 G/DL (3.4-5.0); ALBUMIN/GLOBULIN RATIO 1.1 (1.1-1.5); ALKALINE PHOSPHATASE 101 IU/L (46-116); ANION GAP 13 (8-16); ASPARTATE AMINO TRANSFERASE 35 U/L (10-37); BILIRUBIN,TOTAL 1.6 MG/DL (0.1-1.0); BLOOD UREA NITROGEN 36 MG/DL (7-18); BUN/CREATININE RATIO 21.3 (10.0-20.0); CALCIUM 8.9 MG/DL (8.5-10.1); CHLORIDE 97 MMOL/L (99-107); CREATININE 1.69 MG/DL (0.40-0.90); GLUCOSE 171 MG/DL (70-104); LIPASE 183 U/L (16-77); POTASSIUM 4.1 MMOL/L (3.5-5.1); SODIUM 136 MMOL/L (135-145); TOTAL CARBON DIOXIDE 26.2 MMOL/L (24-32); TOTAL PROTEIN 7.9 G/DL (6.4-8.2); eCRCL 27 ML/MIN; eGFR 30 ML/MIN
[2024-05-14] MEDS: diazepam inj 5 MG/ML inj. IV ONE (20:27)
[2024-05-14] MEDS: magnesium sulf-water 2g/50mL 50 ML IV ONE (20:27)
[2024-05-14] MEDS: haloperidol lactate 5mg/ml inj IM ONE (21:32)
[2024-05-14 21:55] VITALS: BP 148/86; PULSE 82; RESP 20; O2SAT 96
== END 2024-05-14 21:47 | disposition home or self-care (01) ==
LOC: ER 19:30
DX: R11.2 Nausea with vomiting, unspecified (principal); E11.9 Type 2 diabetes mellitus without complications; I10 Essential (primary) hypertension; Z90.49 Acquired absence of other specified parts of digestive tract
CPT/HCPCS: 36415; 80053; 83690; 85025; A4615; J1200; J1630; J2765; J3360; J7030; 96361; 96365; 96372; 96375; 99285